=== PATIENT | male | born 1955 | race Caucasian/White ===

== ENCOUNTER 2019-09-24 10:03 | Inpatient (IN) | payer OTHER ==
[~2019-09-24] VITALS: Ht 170.2 cm; Wt 91.3 kg
[2019-09-24 10:58] LABS: Basophils # (auto) 0.1 10 ^3/uL (0-0.2); Basophils % (auto) 0.9 % (0.0-2.0); Eosinophils # (auto) 0.2 10 ^3/uL (0-0.8); Eosinophils % (auto) 1.6 % (0.0-7.0); Hematocrit 47.7 % (41.0-53.0); Hemoglobin 15.5 g/dL (13.5-17.5); Lymphocytes # (auto) 1.3 10 ^3/uL (0.4-5.4); Lymphocytes % (auto) 11.8 % (10.0-50.0); Mean Corpuscular Hemoglobin 28.3 pg (28.0-32.0); Mean Corpuscular Hgb Conc. 32.5 g/dL (32.0-36.0); Neutrophils # (auto) 8.2 10 ^3/uL (1.6-8.6); Neutrophils % (auto) 76.7 % (37.0-80.0); Nucleated Red Blood Cells % 0.2 %; Platelet Count (auto) 260 10^3/uL (140-450); Red Blood Cells 5.48 10^6/uL (4.5-5.90); Red Cell Distribution Width 15.5 % (11.8-14.3); White Blood Cell 10.6 10^3/uL (4.4-10.8)
[2019-09-24] MEDS ORDERED: METOPROLOL TARTRATE 25 MG TAB PO ONE (11:00)
[2019-09-24 11:12] LABS: INR 1.17 (0.9-1.15); Partial Thromboplastin Time 32.5 sec (23.64-32.05)
[2019-09-24 11:17] LABS: Albumin 3.4 g/dL (3.4-5.0); Calcium 8.8 mg/dL (8.5-10.1); Magnesium 2.6 mg/dL (1.6-2.6); Potassium 4.3 mmol/L (3.5-5.1)
[2019-09-24 11:22] LABS: BUN/Creatinine Ratio 13.4; Total Protein 7.5 g/dL (6.4-8.2)
[2019-09-24] MEDS ORDERED: AZITHROMYCIN 500MG/ 250ML 250 ML IV ONE (12:15)
[2019-09-24] MEDS ORDERED: cefTRIAXone 1GM/50ML D5W 50 ML IV ONE (12:15)
[2019-09-24] MEDS ORDERED: FUROSEMIDE 40 MG/4 ML VIAL IV ONE (12:15)
[2019-09-24] MEDS ORDERED: ENOXAPARIN SOD 100 MG/1 ML SYRINGE SC ONE (12:15)
[2019-09-24] MEDS ORDERED: dilTIAZem 25 MG/5 ML VIAL IV ONE ×2 (12:50→13:00)
[2019-09-24 14:13] LABS: Lactic Acid w/Reflex 2.2 mmol/L (0.4-2.0)
[2019-09-24] MEDS ORDERED: ACETAMINOPHEN 500 MG TAB PO PRN (15:45)
[2019-09-24] MEDS ORDERED: METOPROLOL TARTRATE 1MG/1ML-5ML VIAL IV ONE (15:45)
[2019-09-24] MEDS ORDERED: HYDROcodone-ACET 5/325MG TAB PO PRN (15:45)
[2019-09-24] MEDS ORDERED: MORPHINE SULF INJ 2 MG/ML SYRINGE 1ML IV PRN ×2 (15:45)
[2019-09-24] MEDS ORDERED: NITROGLYCERIN 0.4 MG SL TAB SL PRN (15:45)
[2019-09-24] MEDS ORDERED: ONDANSETRON HCL 4 MG/2 ML VIAL IV PRN (15:45)
[2019-09-24] MEDS ORDERED: dilTIAZem 125mg/125ml BAG KIT 125 ML IV SCH (16:45)
[2019-09-24 16:51] LABS: CRP High Sensitivity 4.83 mg/dL (< 0.3)
[2019-09-24] MEDS ORDERED: IOHEXOL 350 MG/ML 100ML IJ ONE (17:05)
[2019-09-24 18:21] LABS: Cholesterol 196 mg/dL (< 200)
[2019-09-24 18:24] LABS: HDL Cholesterol 40 mg/dL (40-59); LDL Cholesterol 132 mg/dL (< 100); Triglycerides 126 mg/dL (< 150)
[2019-09-24] MEDS: APIXABAN 5 MG TAB PO SCH (21:49)
[2019-09-24] MEDS: ATORVASTATIN 20 MG TAB PO SCH (21:50)
[2019-09-24] MEDS: METOPROLOL TARTRATE 50 MG TAB PO SCH (21:50)
[2019-09-25] VITALS (54 sets, daily range): BP systolic 41–143; BP diastolic 19–97
--- NOTE | 2019-09-25 02:15 | NUR ---
Pt being admitted to ICU WEEKS,PETROS admitted to ICU via gurney on ekg monitor, and portable 02. Patient transfered to bed, connected to ICU monitoring and oxygen, and weighed by bedscale. Patient oriented to Dom Cottrell RN primary RN, unit, room, bed, and unit policies regarding patient care and visiting hours. All questions and concerns addressed, patient verbalized understanding.
--- NOTE | 2019-09-25 03:00 | NUR ---
OPENING NOTE PATIENT AOX4, FOLLOWING COMMANDS. COMPLAINING ABOUT NOT SLEEPING FOR 6 DAYS AND HAVING A DRY NON PRODUCTIVE COUGH. ON 2L NC STATING >95% SPO2 ON BEDSIDE MONITOR. NO SOB OR DIFFICULT BREATHING. AFIB 101 ON BEDSIDE MONITOR WITH BP 120/69 ON 10 OF CARDIZEM GTT. RIGHT FORE ARM 20G IV CDI, REINFORCED DRESSING R/T PATIENT MOVING AROUND OFTEN IN BED. USING URINAL. BED LOCKED AND IN LOWEST POSITION. FOR MORE INFORMATION SEE INTERVENTIONS. FOR GTTS AND THEIR TITRATIONS SEE IV SPREAD SHEET. SKIN INTACT.
[2019-09-25] MEDS ORDERED: HYDR-2691 PO (03:03)
[2019-09-25] MEDS ORDERED: BENA5TAB5 PO (03:03)
[2019-09-25] MEDS: diphenhdrAMINE HCL 25 MG CAP PO PRN ×2 (03:32→22:22)
[2019-09-25 04:45] LABS: Basophils # (auto) 0.1 10 ^3/uL (0-0.2); Basophils % (auto) 0.7 % (0.0-2.0); Eosinophils # (auto) 0.2 10 ^3/uL (0-0.8); Eosinophils % (auto) 1.4 % (0.0-7.0); Hemoglobin 14.2 g/dL (13.5-17.5); Lymphocytes # (auto) 1.8 10 ^3/uL (0.4-5.4); Lymphocytes % (auto) 15.7 % (10.0-50.0); Mean Corpuscular Hemoglobin 28.7 pg (28.0-32.0); Mean Corpuscular Hgb Conc. 33.2 g/dL (32.0-36.0); Mean Corpuscular Volume 86.6 fL (80.0-100.0); Monocytes % (auto) 8.4 % (0.0-12.0); Neutrophils # (auto) 8.3 10 ^3/uL (1.6-8.6); Neutrophils % (auto) 73.8 % (37.0-80.0); Platelet Count (auto) 252 10^3/uL (140-450); Red Blood Cells 4.96 10^6/uL (4.5-5.90); Red Cell Distribution Width 15.6 % (11.8-14.3); White Blood Cell 11.3 10^3/uL (4.4-10.8)
[2019-09-25 05:02] LABS: INR 1.23 (0.9-1.15); Partial Thromboplastin Time 36.2 sec (23.64-32.05)
[2019-09-25 05:03] LABS: Albumin 3.2 g/dL (3.4-5.0); BUN/Creatinine Ratio 16.7; Calcium 8.7 mg/dL (8.5-10.1); Potassium 4.2 mmol/L (3.5-5.1)
[2019-09-25 05:06] LABS: Bilirubin, Total 0.8 mg/dL (0.2-1.0); Total Protein 6.6 g/dL (6.4-8.2)
--- NOTE | 2019-09-25 05:25 | NUR ---
IV ACCESS RIGHT FOREARM 20G IV IS LEAKING AROUND SITE, REMOVED AND STARTING NEW IV ON LEFT HAND 22G
[2019-09-25] MEDS: cefTRIAXone 1GM/50ML D5W 50 ML IV SCH (09:10)
[2019-09-25] MEDS: FAMOTIDINE 20 MG TAB PO SCH (09:36)
--- NOTE | 2019-09-25 09:36 | NUR ---
PHARMACY Called pharmacy and spoke to Tamie regarding grayed out PEPCID tablets states "On back order." Will notify
[2019-09-25] MEDS: APIXABAN 5 MG TAB PO SCH ×2 (09:40→22:00)
[2019-09-25] MEDS: AZITHROMYCIN 500MG/ 250ML 250 ML IV SCH (09:40)
[2019-09-25] MEDS: METOPROLOL TARTRATE 50 MG TAB PO SCH ×2 (09:40→22:00)
--- NOTE | 2019-09-25 09:40 | NUR ---
ECHO in tube conversion technician at bedside to obtain study.
[2019-09-25] MEDS ORDERED: ASPirin-EC 81 mg tab PO SCH (10:00)
--- NOTE | 2019-09-25 11:50 | NUR ---
BLOOD GLUCOSE Blood glucose checked secondary to patient stating " No feeling well." Upon assessment patient found cold and clammy. Blood glucose 198. After getting patient a fan patient stated " feeling much better, i probably was hot."
--- NOTE | 2019-09-25 14:40 | NUR ---
Paged and spoke to Dr. Patrick regarding cardizem GTT turned off and director would like to downgrade to Telemetry. Dr. Lanza states " Telemetry is fine but consult with Dr. Morgan/Devon." [employer] INST[employer]ER Aster Osorio paged.
--- NOTE | 2019-09-25 15:00 | NUR ---
PORCELAIN SLUSHER Paged Aster Osorio, awaiting for PORCELAIN SLUSHER to call back.
--- NOTE | 2019-09-25 15:10 | NUR ---
Paged Dr. Morgan secondary to [facility] is not returning pages.
--- NOTE | 2019-09-25 15:25 | NUR ---
MD Dr. Morgan called and updated on patient condition. states " Okay to downgrade to Telemetry."
--- NOTE | 2019-09-25 15:55 | NUR ---
BED ASSIGNMENT Received bed assignment room 221-A with Connie WILLIAM.
--- NOTE | 2019-09-25 16:17 | NUR ---
RECEIVED REPORT FROM PERRY IN ICU WILL AWAIT PATIENT.
--- NOTE | 2019-09-25 16:20 | NUR ---
REPORT Report given to Kaela WILLIAM, who will continue plan of care once patient arrives to room 221A.
--- NOTE | 2019-09-25 16:45 | NUR ---
TRANSFERRED PATIENT Patient transferred to room 221 A VIA wheelchair with telemetry box 38, all belongings with patient accompanied by Yas WILLIAM.
--- NOTE | 2019-09-25 16:55 | NUR ---
RECEIVED PATIENT TO THE FLOOR Awake and alert, No S/S of distress/SOB or pain. Instructed on POC and to call for assist PRN, will continue to monitor for changes Q1hr and PRN.
[2019-09-25] MEDS: ATORVASTATIN 20 MG TAB PO SCH (22:00)
[2019-09-26 05:00] VITALS: BP 107/56
[2019-09-26 06:03] LABS: Basophils # (auto) 0.1 10 ^3/uL (0-0.2); Basophils % (auto) 0.5 % (0.0-2.0); Eosinophils # (auto) 0.2 10 ^3/uL (0-0.8); Eosinophils % (auto) 2.1 % (0.0-7.0); Hematocrit 42.2 % (41.0-53.0); Lymphocytes # (auto) 1.5 10 ^3/uL (0.4-5.4); Lymphocytes % (auto) 14.8 % (10.0-50.0); Mean Corpuscular Hemoglobin 28.7 pg (28.0-32.0); Mean Corpuscular Hgb Conc. 33.2 g/dL (32.0-36.0); Mean Corpuscular Volume 86.5 fL (80.0-100.0); Monocytes # (auto) 0.8 10 ^3/uL (0-1.3); Monocytes % (auto) 7.5 % (0.0-12.0); Neutrophils # (auto) 7.6 10 ^3/uL (1.6-8.6); Neutrophils % (auto) 75.1 % (37.0-80.0); Nucleated Red Blood Cells % 0.1 %; Platelet Count (auto) 255 10^3/uL (140-450); Red Blood Cells 4.88 10^6/uL (4.5-5.90); Red Cell Distribution Width 15.4 % (11.8-14.3); White Blood Cell 10.2 10^3/uL (4.4-10.8)
[2019-09-26 06:29] LABS: Potassium 4.4 mmol/L (3.5-5.1)
[2019-09-26 06:45] LABS: BUN/Creatinine Ratio 18.8; Calcium 8.7 mg/dL (8.5-10.1)
[2019-09-26 09:00] VITALS: BP 107/83
[2019-09-26] MEDS: cefTRIAXone 1GM/50ML D5W 50 ML IV SCH (09:59)
[2019-09-26] MEDS: APIXABAN 5 MG TAB PO SCH ×2 (09:59→22:48)
[2019-09-26] MEDS: FAMOTIDINE 20 MG TAB PO SCH (10:00)
[2019-09-26] MEDS: METOPROLOL TARTRATE 25 MG TAB PO SCH ×2 (10:01→22:48)
--- NOTE | 2019-09-26 10:25 | NUR ---
DR RICARDO BEDSIDE WITH PATIENT DISCUSSING PLAN OF CARE
[2019-09-26] MEDS: AZITHROMYCIN 500MG/ 250ML 250 ML IV SCH (10:54)
--- NOTE | 2019-09-26 11:00 | NUR ---
BERNICE MCKEON ON UNIT
[2019-09-26] MEDS: PANTOPRAZOLE 40 MG TAB PO SCH (11:32)
[2019-09-26] MEDS ORDERED: DIGOXIN (250MCG/ML) 2 ML AMPULE IV ONE (11:45)
[2019-09-26 13:00] VITALS: BP 131/69
[2019-09-26] MEDS: DIGOXIN (250MCG/ML) 2 ML AMPULE IV SCH ×2 (17:16→23:35)
[2019-09-26 17:45] VITALS: BP 125/66
--- NOTE | 2019-09-26 19:31 | NUR ---
Opening Shift Note Assumed care of patient, awake and alert x 4. No S/S of distress/SOB. Bed is in lowest position and locked. Call light within reach. Board updated. Tele box number matches monitor and leads are in correct placement. Instructed on POC and to call for assist PRN, will continue to monitor for changes Q1hr and PRN.
--- NOTE | 2019-09-26 20:14 | NUR ---
IV removal. IV to left hand removed with catheter intact. Site draped with sterile gauze and wrapped in Coban. Patient tolerated well.
[2019-09-26 22:00] VITALS: BP 136/81
[2019-09-26] MEDS: ATORVASTATIN 20 MG TAB PO SCH (22:48)
[2019-09-26] MEDS: diphenhdrAMINE HCL 25 MG CAP PO PRN (22:49)
[2019-09-27 05:00] VITALS: BP 130/86
[2019-09-27] MEDS: DIGOXIN (250MCG/ML) 2 ML AMPULE IV SCH (05:22)
[2019-09-27] MEDS: cefTRIAXone 1GM/50ML D5W 50 ML IV SCH (08:50)
[2019-09-27 09:05] VITALS: BP 142/91
[2019-09-27] MEDS: METOPROLOL TARTRATE 25 MG TAB PO SCH ×2 (09:23→21:55)
[2019-09-27] MEDS: PANTOPRAZOLE 40 MG TAB PO SCH (09:24)
[2019-09-27] MEDS: APIXABAN 5 MG TAB PO SCH ×2 (09:24→21:55)
[2019-09-27] MEDS: AZITHROMYCIN 250 MG TAB PO SCH (09:24)
--- NOTE | 2019-09-27 09:45 | NUR ---
PT SEEN BY DR. RICARDO MADE AWARE PT'S HR IS STILL GOING UP TO 123BPM, RECEIVED ORDER FOR LOPRESSOR 12.5MG PO ONE TIME DOSE, PT MADE AWARE HE IS NOT CLEARED TO GO HOME DUE TO HIS HIGH HR, PT VERBALIZED UNDERSTANDING.
[2019-09-27] MEDS ORDERED: METOPROLOL TARTRATE 25 MG TAB PO ONE (10:00)
[2019-09-27] MEDS: DIGOXIN 0.125 MG TAB PO SCH (10:31)
[2019-09-27 11:09] LABS: Amphetamine Screen, Urine NEGATIVE (NEGATIVE); Barbiturate Scree,Urine NEGATIVE (NEGATIVE); Benzodiazephine Screen, Urine NEGATIVE (NEGATIVE); Cannabinoid Screen, Urine NEGATIVE (NEGATIVE); Cocaine Screen, Urine NEGATIVE (NEGATIVE); Opiate Scree,Urine NEGATIVE (NEGATIVE); Phencyclidine Screen, Urine NEGATIVE (NEGATIVE)
[2019-09-27 11:10] LABS: Alcohol, Urine < 3.0 mg/dL (0-10)
[2019-09-27 12:37] VITALS: BP 123/78
--- NOTE | 2019-09-27 15:07 | NUR ---
Nutrition Assessment Notes Please refer to link for full assessment notes. Est Energy needs: [id number] kcals (14-18 kcal/kgBW) Est Protein needs: 101-135 gms/day (1.5-2.0 gm/kgIBW) Will continue to monitor and reassess prn. Addendum: 09/27/19 at [address] Amended: Links added.
[2019-09-27 16:47] VITALS: BP 126/90
--- NOTE | 2019-09-27 19:25 | NUR ---
Opening Shift Note Assumed care of patient, awake and alert. No S/S of distress/SOB or pain. Safety measures in place bed in lowest position, side rails up x2, and call light within reach. Instructed on POC and to call for assist PRN, will continue to monitor for changes Q1hr and PRN.
[2019-09-27] MEDS: ATORVASTATIN 20 MG TAB PO SCH (21:54)
[2019-09-27 22:00] VITALS: BP 133/86
[2019-09-27] MEDS: diphenhdrAMINE HCL 25 MG CAP PO PRN (22:33)
[2019-09-28] VITALS (11 sets, daily range): BP systolic 106–138; BP diastolic 67–95
--- NOTE | 2019-09-28 07:30 | NUR ---
RECEIVED REPORT FROM NIGHT NURSE. PATIENT RESTING IN BED, NO DISTRESS NOTED. WILL CONTINUE TO MONITOR.
[2019-09-28] MEDS ORDERED: AMIODARONE HCL 150 MG in D5W 5% 100 ML IV ONE (08:30)
[2019-09-28] MEDS: DIGOXIN 0.125 MG TAB PO SCH (09:34)
[2019-09-28] MEDS: APIXABAN 5 MG TAB PO SCH ×2 (09:35→22:06)
[2019-09-28] MEDS: PANTOPRAZOLE 40 MG TAB PO SCH (09:35)
[2019-09-28] MEDS: METOPROLOL TARTRATE 25 MG TAB PO SCH ×2 (09:35→22:07)
[2019-09-28] MEDS: AMIODARONE HCL 200 MG TAB PO SCH ×2 (09:35→22:05)
[2019-09-28] MEDS: cefTRIAXone 1GM/50ML D5W 50 ML IV SCH (09:35)
[2019-09-28] MEDS: AZITHROMYCIN 250 MG TAB PO SCH (09:35)
--- NOTE | 2019-09-28 10:51 | NUR ---
DR. GRIFFITH AT BEDSIDE, ORDERS RECEIVED, WILL PLACE AND CARRY OUT.
[2019-09-28] MEDS ORDERED: METOPROLOL TARTRATE 25 MG TAB PO ONE (11:00)
[2019-09-28] MEDS: FUROSEMIDE 20 MG/2 ML VIAL IV SCH (18:46)
[2019-09-28] MEDS: ATORVASTATIN 20 MG TAB PO SCH (22:06)
[2019-09-28] MEDS: diphenhdrAMINE HCL 25 MG CAP PO PRN (22:07)
[2019-09-29 05:00] VITALS: BP 122/64
[2019-09-29] MEDS: FUROSEMIDE 20 MG/2 ML VIAL IV SCH (06:07)
[2019-09-29 06:51] LABS: Basophils # (auto) 0.1 10 ^3/uL (0-0.2); Basophils % (auto) 0.5 % (0.0-2.0); Eosinophils # (auto) 0.3 10 ^3/uL (0-0.8); Eosinophils % (auto) 2.6 % (0.0-7.0); Hemoglobin 16.2 g/dL (13.5-17.5); Lymphocytes # (auto) 1.6 10 ^3/uL (0.4-5.4); Mean Corpuscular Hemoglobin 28.3 pg (28.0-32.0); Mean Corpuscular Hgb Conc. 33.2 g/dL (32.0-36.0); Mean Corpuscular Volume 85.3 fL (80.0-100.0); Monocytes # (auto) 1.1 10 ^3/uL (0-1.3); Neutrophils # (auto) 8.4 10 ^3/uL (1.6-8.6); Neutrophils % (auto) 72.9 % (37.0-80.0); Nucleated Red Blood Cells % 0.3 %; Platelet Count (auto) 272 10^3/uL (140-450); Red Blood Cells 5.75 10^6/uL (4.5-5.90); Red Cell Distribution Width 15.3 % (11.8-14.3); White Blood Cell 11.5 10^3/uL (4.4-10.8)
[2019-09-29 07:12] LABS: Potassium 4.2 mmol/L (3.5-5.1)
[2019-09-29 07:13] LABS: INR 1.18 (0.9-1.15); Partial Thromboplastin Time 34.4 sec (23.64-32.05)
[2019-09-29 07:20] LABS: Albumin 3.3 g/dL (3.4-5.0); BUN/Creatinine Ratio 18.2; Calcium 9.3 mg/dL (8.5-10.1); Magnesium 2.5 mg/dL (1.6-2.6)
[2019-09-29 07:23] LABS: Bilirubin, Total 0.7 mg/dL (0.2-1.0); Phosphorus 4.4 mg/dL (2.5-4.90); Total Protein 7.3 g/dL (6.4-8.2)
--- NOTE | 2019-09-29 07:30 | NUR ---
OPENING SHIFT NOTE ASSUMED CARE OF PT FROM [facility]. PT AWAKE AND ALERT. VS STABLE. NO S/S OF DISTRESS. RESPIRATIONS EVEN AND NON LABORED. BED IN LOWEST POSITION WITH CALL LIGHT IN PLACE. EDUCATED PT TO CALL FOR ASSISTANCE IF NEEDED. PT VERBALIZED UNDERSTANDING. Signed: 09/29/19 at 1057 by Samira CORDERO <Co-Signature Required> Co-Signed: 09/29/19 at 1057 by Jess Scott RN
[2019-09-29 09:16] VITALS: BP 112/86
[2019-09-29] MEDS: cefTRIAXone 1GM/50ML D5W 50 ML IV SCH (10:22)
[2019-09-29] MEDS: AZITHROMYCIN 250 MG TAB PO SCH (10:22)
[2019-09-29] MEDS: METOPROLOL TARTRATE 25 MG TAB PO SCH (10:24)
[2019-09-29] MEDS: DIGOXIN 0.125 MG TAB PO SCH (10:24)
[2019-09-29] MEDS: APIXABAN 5 MG TAB PO SCH (10:25)
[2019-09-29] MEDS: PANTOPRAZOLE 40 MG TAB PO SCH (10:25)
[2019-09-29] MEDS: AMIODARONE HCL 200 MG TAB PO SCH (10:25)
[2019-09-29 13:07] VITALS: BP 149/80
--- NOTE | 2019-09-29 14:17 | NUR ---
AT [facility]/ DR. GRIFFITH Signed: 09/29/19 at 1419 by Samira Lou SN <Co-Signature Required> Co-Signed: 09/29/19 at 1419 by Jess Scott RN
--- NOTE | 2019-09-29 14:45 | NUR ---
MRSA swab collected & sent to lab per discharge protocol.
[2019-09-29] MEDS ORDERED: APIX5TAB PO (15:08)
[2019-09-29] MEDS ORDERED: FURO40TA4 PO (15:08)
[2019-09-29] MEDS ORDERED: AZIT250T9 PO (15:08)
[2019-09-29] MEDS ORDERED: DIGO0.1238 PO (15:08)
[2019-09-29] MEDS ORDERED: AMIO200T4 PO (15:08)
[2019-09-29] MEDS ORDERED: ATOR20TA50 PO (15:08)
[2019-09-29] MEDS ORDERED: PANT40T PO (15:08)
[2019-09-29] MEDS ORDERED: MET25T PO (15:08)
--- NOTE | 2019-09-29 16:22 | NUR ---
DISCHARGE PT DISCHARGED PER MD ORDERS. IV CATHETER REMOVED AND INTACT AND DRESSING APPLIED. CARDIAC MONITORED REMOVED AND RETURNED. DISCHARGE EDUCATION PROVIDED TO PT INCLUDING NEWLY PRESCRIBED MEDICATIONS. PT VERBALIZED UNDERSTANDING. PT REPORTS HAVING ALL PERSONAL BELONGINGS. Signed: 09/29/19 at 1625 by Samira CORDERO <Co-Signature Required> Co-Signed: 09/29/19 at 1625 by Jess Scott RN
--- NOTE | 2019-09-29 17:44 | NUR ---
Patient requested to wait in hospital lobby Patient refused wheelchair. Patient stated "My [place] right now. I'm tracking him through an [place]. I'll just wait in the lobby. I'm tired of waiting in the room." Patient ambulated with a steady gait to hospital lobby accompanied by staff member. Respirations even and unlabored, no distress noted.
== END 2019-09-29 17:39 | disposition home or self-care (01) | DRG 280 ==
LOC: ER 10:03 → TELE 10:04 → TELE-CENTR 09-25 02:09 → ICU WEST 09-25 02:21 → TELE-CENTR 09-25 16:39
PROVIDERS: ADMIT Nurse Practitioner Acute Care; ATTEND Internal Medicine
DX: I48.91 Unspecified atrial fibrillation (principal); I21.A1 Myocardial infarction type 2; J15.9 Unspecified bacterial pneumonia; I50.33 Acute on chronic diastolic (congestive) heart failure; D68.59 Other primary thrombophilia; R65.10 Systemic inflammatory response syndrome (SIRS) of non-infectious origin without acute organ dysfunction; J02.0 Streptococcal pharyngitis; B95.5 Unspecified streptococcus as the cause of diseases classified elsewhere; E66.9 Obesity, unspecified; G47.30 Sleep apnea, unspecified; K21.9 Gastro-esophageal reflux disease without esophagitis; E78.5 Hyperlipidemia, unspecified; I48.0 Paroxysmal atrial fibrillation; I11.0 Hypertensive heart disease with heart failure; I70.0 Atherosclerosis of aorta; G47.33 Obstructive sleep apnea (adult) (pediatric); Z68.31 Body mass index [BMI] 31.0-31.9, adult; Z95.0 Presence of cardiac pacemaker; Z79.01 Long term (current) use of anticoagulants; Z91.14 Patient's other noncompliance with medication regimen; Z03.818 Encounter for observation for suspected exposure to other biological agents ruled out
CPT/HCPCS: 36415; 71045; 71046; 71275; 80048; 80053; 80061; 80307; 82728; 82962; 83036; 83605; 83615; 83735; 83880; 84100; 84443; 84484; 85025; 85610; 85730; 86141; 87040; 87081; 87804; 87880; 93005; 93306; 96365; 96366; 96367; 96368; 96372; 96375; 96376; 99291; G0378; J0696; J7060